=== PATIENT | female | born 1985 | race Caucasian/White ===

== ENCOUNTER 2019-07-03 13:40 | Emergency (ER) | payer OTHER, BC ==
[~2019-07-03] VITALS: Ht 167.6 cm; Wt 84.4 kg
[2019-07-03 13:40] VITALS: BP_SYST 121
--- NOTE | 2019-07-03 13:45 | NUR ---
Patient triaged and placed in waiting room. VSS and patient appears in no acute distress at this time. Accompanied by SELF, awaiting available bed, and MD notified of need for MSE.
--- NOTE | 2019-07-03 13:55 | NUR ---
DR SALCEDO SEEN PT IN TRIAGE ROOM.
--- NOTE | 2019-07-03 14:02 | NUR ---
PT APPROACHED ADMITTING AND STATES SHE WANTS TO LEAVE. PT ELOPED
== END 2019-07-03 14:02 | disposition left against medical advice (07) ==
LOC: SED 13:40
DX: O20.9 Hemorrhage in early pregnancy, unspecified (principal); Z53.21 Procedure and treatment not carried out due to patient leaving prior to being seen by health care provider; Z3A.08 8 weeks gestation of pregnancy